=== PATIENT | female | born 1950 | race Caucasian/White ===

== ENCOUNTER 2022-05-22 13:12 | Outpatient (CLI) | payer MEDICARE, SELFPAY ==
--- NOTE | ~2022-05-22 | XR_ITS ---
EXAM: XR hand RT min 3V DATE: 05/22/2022 13:24 HISTORY: Pain in right hand . COMPARISON: None available. FINDINGS: Exam limited by rings on the middle and ring finger, patient declined or was unable to rem ove. Decreased mineralization. No fracture or dislocation. No lytic or blastic lesion. Mild scattered osteoarthritic type joint changes. No erosion or periosteal change. Soft tissues within normal limit s. IMPRESSION: Minor exam limitation as noted above. Mild polyarticular osteoarthritis. Reviewed, dictated and finalized at location K. OND EXPERT IMPRESSION: Minor exam limitation as noted above. Mild polyarticular osteoarthr itis.
== END 2022-05-22 13:13 | disposition home or self-care (01) ==
LOC: ANHBWCIMG 13:14
PROVIDERS: Visit Provider Orthopaedic Surgery
DX: M79.641 Pain in right hand (principal); M15.9 Polyosteoarthritis, unspecified
CPT/HCPCS: 73130

== ENCOUNTER 2022-06-20 12:22 | Outpatient (CLI) | payer MEDICARE, SELFPAY ==
--- NOTE | 2022-06-20 12:56 | ECG_ITS ---
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
[2022-06-20 13:23] LABS: Anion Gap 10 mmol/L (8-16); Blood Urea Nitrogen 19 mg/dL (7-17); Calcium 8.9 mg/dL (8.4-10.2); Carbon Dioxide 25 mmol/L (22-30); Chloride 102 mmol/L (98-107); Estimated Glomerular Filt Rate 49; Glucose 138 mg/dL (65-110); Potassium 4.1 mmol/L (3.4-5.0); Sodium 137 mmol/L (137-145)
== END 2022-06-20 12:23 | disposition home or self-care (01) ==
LOC: ANHSURGERY 12:32
PROVIDERS: Anesthesiology; PCP Family Medicine; Visit Provider Orthopaedic Surgery
DX: I10 Essential (primary) hypertension (principal); E11.9 Type 2 diabetes mellitus without complications; Z01.818 Encounter for other preprocedural examination
CPT/HCPCS: 36415; 80048; 93005

== ENCOUNTER 2022-07-27 00:47 | Day surgery (SDC) | payer MEDICARE, SELFPAY ==
--- NOTE | 2022-06-02 15:26 | PC.NURSE ---
Report to the Outpatient Waiting Room, entrance under the green pavilion located off [address], at time _1000 on date __06/15/22 . Planned Procedure Time: ___1200 . Time changes happen often and if your time is changed the preop area will call you the afternoon before. - You and your visitor will be asked to self-screen and do not enter if you have any COVID symptoms. - Only one visitor is requested with a max of two and NO children visitors are allowed at this time. - The patient visitor may be requested to leave or wait in car when not with patient due to distancing restrictions. - A mask is optional within the hospital at this time. Patients may have clear liquids (water, carbonated beverages, clear teas, apple juice) until 3 hours prior to surgery with a maximum of 20 ounces. - No food from midnight until time of surgery - Infants may have breast milk until 4 hours before surgery, formula 6 hours prior to surgery. - Children will be allowed to drink immediately following surgery. If applicable, please bring a bottle or sippy cup to assist with drinking. Juice, water, soda, and popsicles are readily available. For infants on formula, please bring formula the day of surgery. Pacifiers are allowed. Take the following medications with a SIP of water the morning of surgery: __BUSPIRONE,PAROXETINE,HYDROCODONE IF NEEDED FOR PAIN DO NOT STOP ANY OF YOUR OTHER PRESCRIPTION MEDICATIONS PRIOR TO SURGERY ?EXCEPT THE FOLLOWING Medications to discontinue per physician ALL VITAMINS AND SUPPLEMENTS 3 DAYS PRE OP Date to take last dose_06/11/22 Please no make-up, nail mexican, hairspray, perfume, deodorant, or body powder the day of surgery. No jewelry (including any body piercings) or valuables the day of surgery, leave them at home. Please take a shower or bath the night before, or the morning of, surgery with an antibacterial soap. Wear comfortable, loose fitting clothing. Children are encouraged to wear pajamas. - Jewelry must be removed prior to entering the operating room. Rings and piercings that are not removed may be cut off. - The hospital will not accept responsibility for valuables. - Please leave all valuables, including medications, at home the day of surgery. If you are going home after surgery, a licensed parts driver must drive you home. - NO public transportation without another adult if you receive anesthesia. - We recommend that an adult stay with you for 24 hours following discharge. - We also recommend that you do not drive, make important decision, drink alcoholic beverages, or take any drugs that were not prescribed by your health care provider for at least 24 hours after your discharge time. Follow any additional instructions given to you from your surgeon. If you or anyone in your household have experienced Covid symptoms in the past week, please notify your surgeon or the nurse liaison at the phone number below for possible testing. Telephone instructions given to __PATIENT and asked if any additional questions and then verbalized understanding. Patient advised to call surgeon office or pre surgery nurse liaison [phone] if any additional questions.
[2022-06-02 15:33] VITALS: BMI 25.0
--- NOTE | 2022-06-20 12:08 | PC.NURSE ---
PRE-OP INSTRUCTIONS, PLEASE READ CAREFULLY Report to the Outpatient Waiting Room, entrance under the green pavilion located off [facility], at time _0800_ on date _06/29/22_. Planned Procedure Time: _1000_. Time changes happen often and if your time is changed the preop area will call you the afternoon before. - You and your visitor will be asked to self-screen and do not enter if you have any COVID symptoms. - Only one visitor is requested with a max of two and NO children visitors are allowed at this time. - The patient visitor may be requested to leave or wait in car when not with patient due to distancing restrictions. - A mask is optional within the hospital at this time. Patients may have clear liquids (water, carbonated beverages, clear teas, apple juice) until 3 hours prior to surgery (0700 AM) with a maximum of 20 ounces. - No food from midnight until time of surgery Take the following medications with a SIP of water the morning of surgery: _BUSPIRONE,PAROXETINE & HYDROCODONE IF NEEDED_ DO NOT STOP ANY OF YOUR OTHER PRESCRIPTION MEDICATIONS PRIOR TO SURGERY ?EXCEPT THE FOLLOWING Medications to discontinue per ANESTHESIA - _ALL VITAMINS / SUPPLEMENTS 3 DAYS PRIOR TO SURGERY, Date to take last dose 06/25/22_ Please no make-up, nail mongolian, hairspray, perfume, deodorant, or body powder the day of surgery. No jewelry (including any body piercings) or valuables the day of surgery, leave them at home. Please take a shower or bath the night before, or the morning of, surgery with an antibacterial soap. Wear comfortable, loose fitting clothing. - Jewelry must be removed prior to entering the operating room. Rings and piercings that are not removed may be cut off. - The hospital will not accept responsibility for valuables. - Please leave all valuables, including medications, at home the day of surgery. If you are going home after surgery, a licensed catering driver must drive you home. - NO public transportation without another adult if you receive anesthesia. - We recommend that an adult stay with you for 24 hours following discharge. - We also recommend that you do not drive, make important decision, drink alcoholic beverages, or take any drugs that were not prescribed by your health care provider for at least 24 hours after your discharge time. Follow any additional instructions given to you from your surgeon. If you or anyone in your household have experienced Covid symptoms in the past week, please notify your surgeon or the nurse liaison at the phone number below for possible testing. Instructions given to _PATIENT_and asked if any additional questions and then verbalized understanding. Patient advised to call surgeon office or pre surgery nurse liaison [phone] if any additional questions.
--- NOTE | 2022-07-20 13:13 | PC.NURSE ---
Report to the Outpatient Waiting Room, entrance under the green pavilion located off [facility], at time __0600 on date _07/27/22/ . Planned Procedure Time: _0730 . Time changes happen often and if your time is changed the preop area will call you the afternoon before. - You and your visitor will be asked to self-screen and do not enter if you have any COVID symptoms. - Only one visitor is requested with a max of two and NO children visitors are allowed at this time. - The patient visitor may be requested to leave or wait in car when not with patient due to distancing restrictions. - A mask is optional within the hospital at this time. Patients may have clear liquids (water, carbonated beverages, clear teas, apple juice) until 3 hours prior to surgery with a maximum of 20 ounces. - No food from midnight until time of surgery - Infants may have breast milk until 4 hours before surgery, formula 6 hours prior to surgery. - Children will be allowed to drink immediately following surgery. If applicable, please bring a bottle or sippy cup to assist with drinking. Juice, water, soda, and popsicles are readily available. For infants on formula, please bring formula the day of surgery. Pacifiers are allowed. Take the following medications with a SIP of water the morning of surgery: ____BUSPIRONE,PAROXETINE, HYDROCODONE IF NEEDED FOR PAIN DO NOT STOP ANY OF YOUR OTHER PRESCRIPTION MEDICATIONS PRIOR TO SURGERY ?EXCEPT THE FOLLOWING Medications to discontinue per physician ALL VITAMINS/SUPPLEMENTS 3 DAYS PRE OP.LAST DOSE 07/23/22 Please no make-up, nail pashto, hairspray, perfume, deodorant, or body powder the day of surgery. No jewelry (including any body piercings) or valuables the day of surgery, leave them at home. Please take a shower or bath the night before, or the morning of, surgery with an antibacterial soap. Wear comfortable, loose fitting clothing. Children are encouraged to wear pajamas. - Jewelry must be removed prior to entering the operating room. Rings and piercings that are not removed may be cut off. - The hospital will not accept responsibility for valuables. - Please leave all valuables, including medications, at home the day of surgery. If you are going home after surgery, a licensed pile driver operator must drive you home. - NO public transportation without another adult if you receive anesthesia. - We recommend that an adult stay with you for 24 hours following discharge. - We also recommend that you do not drive, make important decision, drink alcoholic beverages, or take any drugs that were not prescribed by your health care provider for at least 24 hours after your discharge time. For Pediatric surgeries, we recommend two adults accompany the child home. Follow any additional instructions given to you from your surgeon. If you or anyone in your household have experienced Covid symptoms in the past week, please notify your surgeon or the nurse liaison at the phone number below for possible testing. Telephone instructions given to __PATIENT and asked if any additional questions and then verbalized understanding. Patient advised to call surgeon office or pre surgery nurse liaison [phone] if any additional questions.
[2022-07-20 13:17] VITALS: BMI 25.0
--- NOTE | 2022-07-27 06:40 | WPDANESEPPF ---
Anes - Initial Pre Proc Eval Procedure: Operation Date: 07/27/22 08:30 Proposed Procedures p Right Ring Finger Trigger Release, - Mac Encarnacion MD s Right Knee Cortisone Injection - Mac Encarnacion MD Date/Time: 07/27/22 06:40 Surgeon: Mac Encarnacion MD Pre Op Diagnosis: right ring trigger finger, right knee oa Patient Data Age: 72 Gender: F Height: 1.65 m Weight: 68.1 kg Allergies Allergy/AdvReac Type Severity Reaction Status Date / Time No Known Allergies Allergy Unverified 07/27/22 06:12 Home Medications Medication Instructions Recorded Confirmed Type atorvastatin 40 mg tablet 40 mg PO DAILY 05/26/22 07/27/22 History buspirone 10 mg tablet 10 mg PO BID 05/26/22 07/27/22 History losartan 25 mg tablet 25 mg PO DAILY 05/26/22 07/27/22 History metformin 500 mg tablet 500 mg PO BID 05/26/22 07/27/22 History paroxetine HCl 20 mg tablet (Paxil) 20 mg PO DAILY 05/26/22 07/27/22 History amitriptyline 25 mg tablet 25 mg PO HS 06/02/22 07/27/22 History aspirin 81 mg tablet,delayed 81 mg PO HS 06/02/22 07/27/22 History release (Adult Low Dose Aspirin) cholecalciferol (vitamin D3) 25 25 mcg PO DAILY 06/02/22 07/27/22 History mcg (1,000 unit) tablet hydrocodone 10 mg-acetaminophen 1 tablet PO PRN PRN Pain 06/02/22 07/27/22 History 325 mg tablet multivitamin 1 tablet PO DAILY 06/02/22 07/27/22 History quetiapine 400 mg tablet 400 mg PO HS 06/02/22 07/27/22 History Patient hx anesthesia problems: none Family hx anesthesia problems: none Results Review: All pre-operative results and documents have been reviewed as part of the pre-operative evaluation. [facility] Past Medical History Medical History Degenerative arthritis of right knee Trigger finger, right ring finger Surgical History Surgical History History of hysterectomy Social History Social History Smoking status: Never smoker Living arrangements: alone Spiritual care concerns: No Anes - Eval Final PreProcedure Day of Procedure 07/27/22 06:40 Patient weight: normal Heart: regular rate and rhythm Lungs: clear to auscultation Airway: Mallampati scale class II Neurological: alert and oriented Last oral intake: >/= 8 hours ASA classification: III Emergent: no Anesthetic plan: proceed Anesthesia type and monitoring: general GIVS and standard monitoring Results Review: All pre-operative results and documents have been reviewed as part of the pre-operative evaluation. Informed Consent: The patient's anesthetic plan and its attendant risks and benefits were discussed with the patient/family/POA. Questions were solicited and answers provided to the satisfaction of the patient/family/POA.
[2022-07-27 07:12] LABS: Glucose Point of Care 101 mg/dl (65-105)
[2022-07-27] MEDS: LACTATED RINGERS 1,000 ML 30 ML IV CONT (07:13)
[2022-07-27 07:33] VITALS: BP 143/85; PULSE 100; RESP 16; TEMP 35.9; O2SAT 96
[2022-07-27] MEDS: KETOROLAC 15 MG/ML VIAL (*BKC) IV PUSH (08:00)
--- NOTE | 2022-07-27 08:39 | PM.IMHP ---
H&P: HPI History of Present Illness Date/Time: 07/27/22 08:39 Chief Complaint: RT ring trigger. RT knee pain Narrative: 72yo woman presents for above cheif complaints. Review of Systems Constitutional: Constitutional: Denies fever(s) Eyes: Eyes: Denies blurry vision ENT: Reports Normal hearing present Cardiovascular: Cardiovascular: Denies chest pain and Denies dyspnea Respiratory: Respiratory: Denies dyspnea and Denies wheezing Gastrointestinal: Gastrointestinal: Denies abdominal pain Genitourinary: Genitourinary: Denies urinary urgency Musculoskeletal: Musculoskeletal: Reports as per HPI and Denies numbness Integumentary/Breasts: Skin/Breast: Denies changing lesions and Denies sores Neurologic: Reports Normal hearing present, Denies behavioral changes, Denies confusion, Denies numbness and Denies convulsions Psychiatric: Psychiatric: Denies behavioral changes, Denies confusion and Denies hallucinations Endocrine: Endocrine: Denies heat intolerance Hematologic/Lymphatic: Hematologic/Lymphatic: Denies easy bleeding Allergic/Immunologic: Allergic/Immunologic: Denies wheezing PMFSH Past Medical History Medical History Degenerative arthritis of right knee Trigger finger, right ring finger Surgical History Surgical History History of hysterectomy Social History Social History Smoking status: Never smoker Living arrangements: alone Spiritual care concerns: No Meds Home Medications and Allergies Home Medications Medication Instructions Recorded Confirmed Type atorvastatin 40 mg tablet 40 mg PO DAILY 05/26/22 07/27/22 History buspirone 10 mg tablet 10 mg PO BID 05/26/22 07/27/22 History losartan 25 mg tablet 25 mg PO DAILY 05/26/22 07/27/22 History metformin 500 mg tablet 500 mg PO BID 05/26/22 07/27/22 History paroxetine HCl 20 mg tablet (Paxil) 20 mg PO DAILY 05/26/22 07/27/22 History amitriptyline 25 mg tablet 25 mg PO HS 06/02/22 07/27/22 History aspirin 81 mg tablet,delayed 81 mg PO HS 06/02/22 07/27/22 History release (Adult Low Dose Aspirin) cholecalciferol (vitamin D3) 25 25 mcg PO DAILY 06/02/22 07/27/22 History mcg (1,000 unit) tablet hydrocodone 10 mg-acetaminophen 1 tablet PO PRN PRN Pain 06/02/22 07/27/22 History 325 mg tablet multivitamin 1 tablet PO DAILY 06/02/22 07/27/22 History quetiapine 400 mg tablet 400 mg PO HS 06/02/22 07/27/22 History Allergies Allergy/AdvReac Type Severity Reaction Status Date / Time No Known Allergies Allergy Unverified 07/27/22 06:12 Vital Signs Vital Signs - 24 hr 07/27/22 07:33 Temperature 96.7 F L Pulse Rate 100 Respiratory Rate 16 Blood Pressure 143/85 H Pulse Oximetry 96 Oxygen Delivery Room Air Exam Const: General: healthy appearing; No in distress or confusion Orientation/consciousness: oriented to person, oriented to place, oriented to time and No confusion HENMT: Head: normal to inspection, normocephalic and atraumatic Eyes: Conjunctivae: conjunctivae normal Sclera: sclerae normal Neck: Neck: supple and nontender Resp: Effort & Inspection: normal respiratory effort and no audible wheezes Cardio: Rate: regular rate Rhythm: regular rhythm Skin: General skin exam: no rashes or lesions noted Neuro: General: oriented to person, oriented to place, oriented to time and No confusion Extrem: Right upper extremity: normal to inspection and Extremity exam: right hand other (catching ring finger); ROM limited Left upper extremity: normal to inspection Right lower extremity: hip/thigh Details: normal ROM; no tenderness, knee Details: normal to inspection, normal ROM, knee ligament exam normal Details: anterior drawer test normal, posterior drawer test normal, valgus stress test normal, varus stress test normal and Thaddeus?s test normal and
--- NOTE | 2022-07-27 08:42 | WPDHPUPDATE1 ---
History and Physical Update Update Date/Time: 07/27/22 08:42 History and Physical has been reviewed, including an updated exam of the patient. There are NO changes in the patient's condition. Risks, benefits, and alternatives have been discussed and questions answered. Patient agrees to proceed with procedure.
[2022-07-27] MEDS: ceFAZolin 2 GM/D5W 50 ML 2 GM/50 ML BAG IVPB (08:43)
[2022-07-27] MEDS: LIDOCAINE HCL 2% LOCAL INJ 20 ML VIAL INFILTRATE (09:07)
[2022-07-27] MEDS: methylPREDNISolone ACETATE 80 MG/ML VIAL IM (09:08)
[2022-07-27] MEDS: BUPivacaine HCL 0.5% 10 ML AMP 8 ML INFILTRATE (09:09)
[2022-07-27 09:18] VITALS: BP 120/69; PULSE 84; RESP 12; O2SAT 100
--- NOTE | 2022-07-27 09:20 | W.PM.PROC2 ---
Procedure Note - Detailed Date of Procedure 07/27/22 Pre-op Diagnosis right ring trigger finger, right knee oa Post-op Diagnosis Same Procedure Performed Right ring trigger finger release, right knee cortisone injection. Surgeon Mac Encarnacion MD Reducing Salon Attendant 1St regional administrative assistant Anesthesia MAC Indications 72-year-old woman with right ring trigger finger deformity. Unrelieved with conservative treatment including anti-inflammatories, bracing and therapy. Presents for operative treatment. Also with right knee degenerative changes. Desires cortisone injection. Description of Procedure Patient identified in the preoperative holding. Informed consent given. Operative extremity marked. Patient received intravenous antibiotics. Patient brought to the operating room where underwent Intravenous sedation anesthetic by anesthesia team. Positioned supine on operating room table. Time-out performed confirming the patient, site of the surgery and the plan. right hand prepped draped usual sterile surgical fashion using a ChloraPrep skin solution. Hand exsanguinated and Esmarch wrap at the forearm as a tourniquet. Local anesthetic with 0.5% Marcaine. Incision with 15 blade knife made in the palmar crease overlying the ring finger A1 anika. Hemostasis controlled with bipolar cautery. Dissection carried down to the flexor tendon. The A1 anika identified and released with [place] blade. Tendon inspected and noted to be intact. There was some cyst material around this which was evacuated. Any overlying synovium was excised. Wound irrigated. Finger taken through full range of motion and no catching noted. Skin approximated with 4-0 nylon interrupted suture. Sterile dressing applied. Right knee prepped with Betadine prep solution. 22 gauge needle used to inject the anteromedial knee joint with 80 mg Depo-Medrol and 2 cc of 1% lidocaine plain. Sterile dressing applied. The patient was then woken from anesthesia and taken to the recovery room in stable condition. All sponge, needle, instrument counts were correct at the end of the case. Estimated Blood Loss 1 Tourniquet Time 8 Drains No Packing No Pathology None sent Complications None Condition Stable Disposition PACU [facility] Billing Surgery - Charge Forward: Surgery Billing ([id number], [id number])
[2022-07-27 09:23] LABS: Glucose Point of Care 105 mg/dl (65-105)
[2022-07-27 09:45] VITALS: BP 120/69; PULSE 84; RESP 12
[2022-07-27 10:10] VITALS: BP 100/70; PULSE 93; RESP 20
== END 2022-07-27 10:20 | disposition home or self-care (01) ==
PROVIDERS: PCP Family Medicine; Visit Provider Orthopaedic Surgery
PROC: (CPT 64721; principal; 2022-07-27 08:30)
PROC: (CPT 26055; 2022-07-27 08:30)
DX: M65.341 Trigger finger, right ring finger (principal); M17.11 Unilateral primary osteoarthritis, right knee; Z79.84 Long term (current) use of oral hypoglycemic drugs; Z79.82 Long term (current) use of aspirin
CPT/HCPCS: 26055; 20610; 82948; J0690; J1040; J1885; J2250; J2704; J3010; J7120

== ENCOUNTER 2023-06-04 12:34 | Outpatient (CLI) | payer MEDICARE, SELFPAY ==
--- NOTE | ~2023-06-04 | XR_ITS ---
Left Knee Technique: AP, lateral, and sunrise views were obtained. Clinical History: Pain Findings: No fracture or dislocation is seen. Osseous alignment is anatomic. Joint spaces are preserv ed without degenerative or erosive change. Soft tissues are unremarkable. No joint effusion is seen. Impression: Unremarkable left knee radiographs. Reviewed, dictated and finalized at location . ATOR MECHANIC Impression: Unremarkable left knee radiographs.
--- NOTE | ~2023-06-04 | XR_ITS ---
Right Knee Technique: AP, lateral, and sunrise views were obtained. Clinical History: Pain Findings: No fracture or dislocation is seen. Osseous alignment is anatomic. Joint spaces are preserv ed without degenerative or erosive change. Soft tissues are unremarkable. No joint effusion is seen. Impression: Unremarkable right knee radiographs. Reviewed, dictated and finalized at location . S COUNTER SALES PERSON Impression: Unremarkable right knee radiographs.
== END 2023-06-04 12:35 | disposition home or self-care (01) ==
LOC: ANHBWCIMG 12:37
PROVIDERS: PCP Family Medicine; Visit Provider Orthopaedic Surgery
DX: M25.561 Pain in right knee (principal); M25.562 Pain in left knee
CPT/HCPCS: 73564